=== PATIENT | male | born 1960 | race Caucasian/White ===

== ENCOUNTER 2024-11-08 23:27 | Emergency (ER) | payer MEDICAID ==
[~2024-11-08] VITALS: Ht 165.1 cm; Wt 54.0 kg
[2024-11-08 23:34] VITALS: TEMP 36.2; O2SAT 97
[2024-11-09 00:43] VITALS: BP 119/82; PULSE 76; RESP 12; O2SAT 100
== END 2024-11-09 00:44 | disposition home or self-care (01) ==
LOC: EDBD 23:27 → ER 11-09 00:25
DX: K13.70 Unspecified lesions of oral mucosa (principal)
CPT/HCPCS: 99283